=== PATIENT | female | born 1990 ===

== ENCOUNTER 2018-01-11 23:11 | Emergency (ER) | payer SELFPAY ==
[2018-01-11 23:31] VITALS: BP 112/69; PULSE 84; RESP 18; TEMP 98.1; O2SAT 100
[2018-01-11] MEDS ORDERED: Albuterol-Ipratrop 3 mg / 0.5 (3 ml) UD IH STA (23:49)
--- NOTE | 2018-01-11 23:52 | ED PDOC ---
HPI: CCC, URI, Sore Throat Time Seen by Provider: 01/11/18 23:33 Chief Complaint (Nursing): Flu-like Symptoms Chief Complaint (Provider): cough, congestion History Per: Patient, Family History/Exam Limitations: no limitations Onset/Duration Of Symptoms: Days (2) Current Symptoms Are (Timing): Still Present Location Of Pain: Throat Associated Symptoms: Sore Throat, Cough, Sputum, Nasal Congestion Additional Complaint(s): 27 y/o female presents for evaluation of cough and congestion x 2 days. Patient reports nasal congestion, productive cough, sore throat and hoarse voice. Patient took one dose of Ampicillin with little improvement. Denies fever, headache, nausea/vomiting, ear pain, abdominal pain, changes in bowel movements, recent travel. Patient's daughter here sick with same. Past Medical History Reviewed: Historical Data, Nursing Documentation, Vital Signs Vital Signs: Last Vital Signs Temp 98.1 F 01/11/18 23:27 Pulse 84 01/11/18 23:27 Resp 18 01/11/18 23:27 BP 112/69 01/11/18 23:27 Pulse Ox 100 01/11/18 23:27 - Medical History PMH: No Chronic Diseases - Surgical History Surgical History: No Surg Hx - Family History Family History: States: No Known Family Hx - Living Arrangements Living Arrangements: With Family - Home Medications Home Medications: Ambulatory Orders Medication Instructions Recorded Fluticasone Nasal [Flonase] 1 actuation NS BID #1 bottle 01/12/18 Ibuprofen [Motrin Tab] 1 tab PO Q6 PRN #15 tab 01/12/18 guaiFENesin/Dextromethorphan 1 - 2 tab PO Q12 PRN #20 tab 01/12/18 [guaiFENesin/DM 600-30 mg] - Allergies Allergies/Adverse Reactions: Allergies Allergy/AdvReac Type Severity Reaction Status Date / Time No Known Allergies Allergy Verified 01/11/18 23:31 Review of Systems ROS Statement: Except As Marked, All Systems Reviewed And Found Negative ENT: Positive for: Nose Congestion, Throat Pain Respiratory: Positive for: Cough, Sputum Physical Exam - Reviewed Nursing Documentation Reviewed: Yes Vital Signs Reviewed: Yes - Physical Exam Appears: Positive for: Well, Non-toxic, No Acute Distress Head Exam: Positive for: ATRAUMATIC, NORMAL INSPECTION, NORMOCEPHALIC Skin: Positive for: Normal Color Eye Exam: Positive for: Normal appearance ENT: Positive for: Pharyngeal Erythema Cardiovascular/Chest: Positive for: Regular Rate, Rhythm Respiratory: Positive for: Normal Breath Sounds Gastrointestinal/Abdominal: Positive for: Normal Exam Back: Positive for: Normal Inspection Extremity: Positive for: Normal ROM Neurologic/Psych: Positive for: Alert, Oriented (x3) - ECG O2 Sat by Pulse Oximetry: 100 - Progress ED Course And Treament: flu, strep, ibuprofen, neb Patient educated on findings, discharged with rx flonase, ibuprofen, mucinex DM Advised fluids, rest Follow up PMD 2-3 days REturn precautions given Disposition - Clinical Impression Clinical Impression: URI (upper respiratory infection) - Patient ED Disposition Is Patient to be Admitted: No Counseled Patient/Family Regarding: Studies Performed, Diagnosis, Need For Followup, Rx Given - Disposition Referrals: [facility] [place] [Outside] Disposition: Routine/Home Disposition Time: 01:53 Condition: IMPROVED Prescriptions: Fluticasone Nasal [Flonase] 1 actuation NS BID #1 bottle guaiFENesin/Dextromethorphan [guaiFENesin/DM 600-30 mg] 1 - 2 tab PO Q12 PRN #20 tab PRN Reason: cough and congestion Ibuprofen [Motrin Tab] 1 tab PO Q6 PRN #15 tab PRN Reason: Pain, Moderate (4-7) Instructions: Viral Upper Respiratory Infection, Adult (DC) Print Language: GREENLAND[place]
[2018-01-12] MEDS ORDERED: Albuterol-Ipratrop 3 mg / 0.5 (3 ml) UD ONE
== END 2018-01-12 02:07 | disposition home or self-care (01) ==
LOC: H.ER 23:11
DX: J06.9 Acute upper respiratory infection, unspecified (principal)